=== PATIENT | male | born 1985 | race Caucasian/White ===

== ENCOUNTER 2019-04-10 12:35 | Emergency (ER) | payer MEDICAID, SELFPAY ==
[2019-04-10] MEDS ORDERED: Ketorolac Tromethamine 30 MG/ML VIAL ONE (12:54)
[2019-04-10] MEDS ORDERED: Ondansetron PF 4 MG/2 ML Vial ONE (12:54)
[2019-04-10] MEDS ORDERED: Sodium Chloride 0.9% 1,000 ML ONE (12:54)
[2019-04-10 13:03] LABS: Bilirubin Negative (Negative); Blood, Urine Moderate (Negative); Clarity Clear (Clear); Glucose, Urine (Dipstick) Negative (Negative); Leukocyte Trace (Negative); Nitrite Negative (Negative); Protein, Urine (Dipstick) Negative (Neg-Trace); Urobilinogen 0.2 mg/dL (Less than 2)
[2019-04-10 13:13] LABS: Bacteria/HPF Rare-Few HPF (None Seen); RBC/HPF 0-3 HPF (0-3); Squamous Epithelial 0-3 HPF (0-3)
[2019-04-10 13:24] LABS: White Blood Cell (WBC) Count 9.2 thou/uL (4.8-10.8)
[2019-04-10] MEDS ORDERED: Morphine 4 MG/ML VIAL ONE (13:25)
[2019-04-10 13:29] LABS: ALT (SGPT) 40 U/L (8-55); AST (SGOT) 15 U/L (5-34); Albumin 5.1 g/dL (3.5-5.0); Alkaline Phosphatase 96 U/L (40-110); Anion Gap 16 mmol/L (10-20); BUN (Urea Nitrogen) 14 mg/dL (8.9-20.6); Bilirubin, Total 0.5 mg/dL (0.2-1.2); Calc. Creatinine Clearance 0 mL/min (70-130); Calcium 9.5 mg/dL (7.8-10.44); Carbon Dioxide 24 mmol/L (22-29); Chloride 107 mmol/L (98-107); Estimated GFR-MDRD Greater than 90; Globulin 2.8 g/dL (2.4-3.5); Glucose 90 mg/dL (70-105); Potassium 4.1 mmol/L (3.5-5.1); Protein, Total 7.9 g/dL (6.0-8.3); Sodium 143 mmol/L (136-145)
[2019-04-10 14:06] LABS: Band 1 % (5-11); Eosinophils 1 % (0-10); Lymphocytes 43 % (21-51); Monocytes 2 % (0-10); Neutrophil 53 % (42-75); Platelet Morphology Comment Appears Adequate; RBC Morphology Normal
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
[2019-04-10] MEDS ORDERED: KETAMINE 100 MG/ML (5ML VIAL) ONE (14:21)
[2019-04-10] MEDS ORDERED: Tamsulosin HCl 0.4 MG CAP ONE (14:21)
[2019-04-10] MEDS ORDERED: Lidocaine 2% PF 100 mg/5 ml Syringe ONE (14:21)
[2019-04-10 18:26] LABS: #Eosinphils 0.2 thou/uL (0.0-0.7); #Lymphocytes 3.4 thou/uL (1.20-3.40); #Monocytes 0.8 thou/uL (0.11-0.59); #Neutrophils 5.1 thou/uL (1.40-6.50); %Basophils 0.4 % (0.0-1.0); %Eosinophils 2.1 % (0.0-10.0); %Lymphocytes 35.5 % (21.0-51.0); %Monocytes 8.5 % (0.0-10.0); %Neutrophils 53.5 % (42.0-75.0); Hemoglobin 16.9 g/dL (14.0-18.0); Mean Corpuscular HGB CONC 33.5 g/dL (32.0-36.0); Mean Corpuscular Hemoglobin 31.2 pg (27.0-31.0); Mean Corpuscular Volume 92.9 fL (78.0-98.0); Mean Platelet Volume 8.9 fL (7.4-10.4); Platelet Count 263 thou/uL (130-400); RBC Distribution Width 11.9 % (11.5-14.5); Red Blood Cell (RBC) Count 5.43 mill/uL (4.70-6.10)
== END 2019-04-10 15:31 | disposition home or self-care (01) ==
LOC: NAV ERS 12:35
DX: R10.9 Unspecified abdominal pain (principal); R31.9 Hematuria, unspecified; G43.909 Migraine, unspecified, not intractable, without status migrainosus; F17.210 Nicotine dependence, cigarettes, uncomplicated
CPT/HCPCS: 74177; 80053; 81003; 81015; 85025; 96361; 96374; 96375; J1885; J2001; J2270; J2405; J7050

== ENCOUNTER 2021-09-21 13:49 | Emergency (ER) | payer SELFPAY ==
[2021-09-21] MEDS ORDERED: Ketorolac Tromethamine 60 MG/2 ML VIAL ONE (14:10)
[2021-09-21 14:26] LABS: #Basophils 0.1 thou/uL (0.0-0.2); #Eosinphils 0.2 thou/uL (0.0-0.7); #Monocytes 0.9 thou/uL (0.11-0.59); #Neutrophils 6.5 thou/uL (1.40-6.50); %Basophils 0.7 % (0.0-1.0); %Eosinophils 1.8 % (0.0-10.0); %Lymphocytes 28.1 % (21.0-51.0); %Monocytes 8.2 % (0.0-10.0); %Neutrophils 61.2 % (42.0-75.0); Hemoglobin 13.2 g/dL (14.0-18.0); Mean Corpuscular HGB CONC 30.3 g/dL (32.0-36.0); Mean Corpuscular Hemoglobin 29.6 pg (27.0-31.0); Mean Corpuscular Volume 97.7 fL (78.0-98.0); Platelet Count 324 thou/uL (130-400); RBC Distribution Width 13.7 % (11.5-14.5); Red Blood Cell (RBC) Count 4.45 mill/uL (4.70-6.10); White Blood Cell (WBC) Count 10.7 thou/uL (4.8-10.8)
== END 2021-09-21 15:18 | disposition home or self-care (01) ==
LOC: NAV ERS 13:49
DX: R10.9 Unspecified abdominal pain (principal); F17.210 Nicotine dependence, cigarettes, uncomplicated; R10.813 Right lower quadrant abdominal tenderness
CPT/HCPCS: 36415; 85025; 96372; 99284; J1885

== ENCOUNTER 2021-10-28 20:55 | Emergency (ER) | payer SELFPAY ==
[2021-10-28] MEDS ORDERED: Lorazepam 2 MG/ML VIAL ONE (21:07)
[2021-10-28] MEDS ORDERED: Neomycin-Polymyxin-Hc 7.5 ML BOT ONE (21:19)
[2021-10-28] MEDS ORDERED: Ibuprofen 800 MG TAB ONE (21:19)
== END 2021-10-28 21:27 | disposition home or self-care (01) ==
LOC: NAV ERS 20:55
DX: H60.501 Unspecified acute noninfective otitis externa, right ear (principal); F17.210 Nicotine dependence, cigarettes, uncomplicated
CPT/HCPCS: 99282; J2060